=== PATIENT | female | born 1935 | race Caucasian/White ===

== ENCOUNTER 2019-12-05 13:22 | Inpatient (IN) | payer OTHER, MEDICARE ==
[~2019-12-05] VITALS: Ht 160 cm; Wt 61.2 kg
--- NOTE | 2019-12-05 14:08 | EKG ---
[address] [address] Test Date: 2019-12-05 Test Time: 13:55:03 Pat Name: [facility] Department: Room: Gender: F Chicken Catcher: SHAWN : 1935 Requested By: FELI ROWE Order Number: [id number] Reading MD: Measurements Intervals Bryant Rate: 72 P: 3 MO: 166 QRS: -19 QRSD: 72 T: 16 QT: 464 QTc: 510 Interpretive Statements SINUS RHYTHM ATRIAL PREMATURE COMPLEX(ES) LEFTWARD AXIS T ABNORMALITY IN ANTERIOR LEADS PROLONGED QT ABNORMAL ECG RI6.02 No previous ECG available for comparison
--- NOTE | 2019-12-05 14:10 | PHYS DOC ---
General Adult EDM: Chief Complaint: ALTERED MENTAL STATUS HPI: HPI: 84-year-old female past medical history significant for severe dementia, CVA, hypothyroidism, hypertension, GERD, presents to the ed bibems from [facility], concern for failure to thrive, not getting out of bed, not eating normally. EMS reported patient is having urinary retention and had to straight cath yesterday, 1,000 cc urine removed. Patient was recently admitted to [facility] with concern for UTI and RLE cellulitis. After this patient was [facility] (prior to this was at an assisted living facility- broke her hip 08/2019). ROS: Unable to be obtained due to severe dementia/inappropriate responses. Medication list reviewed by patient, is not on any anticoagulants, no antibiotics on med list. Tested negative for COVID on November 26, 2019. Physical Exam: PE: Constitutional: no acute distress, non-toxic appearance. [] HENT: Normocephalic, atraumatic, bilateral external ears normal, oropharynx very dry/cracked tongue, no oral exudates, nose normal. [] Eyes: EOMI, conjunctiva normal, no discharge. [] Neck: Normal range of motion, no tenderness, supple, no stridor. [] Cardiovascular:Heart rate regular rhythm, no murmur [] Lungs & Thorax: Bilateral breath sounds clear to auscultation [] Abdomen: Bowel sounds normal, soft, no tenderness, no masses, no pulsatile masses. [] Skin: Warm, dry, no erythema, no rash-no RLE cellulitis-has resolved. [] Back: No tenderness, no CVA tenderness. [] Extremities: No tenderness, no cyanosis, no clubbing, ROM intact, no edema. [] Neurologic: Alert and oriented X 3, normal motor function, normal sensory function, no focal deficits noted. [] Psychologic: Affect normal, judgement normal, mood normal. [] EKG: EKG: [] Sinus rhythm at 73 bpm, with APCs, QTC 510, T wave inversion V1 through V6, no ST elevations or ST depressions -possible l Radiology/Procedures: Radiology/Procedures: IMAGING REPORT Signed PATIENT: CHUY MYLES ACCOUNT: [id number] : 1935 LOCATION: ER AGE: 84 SEX: F EXAM STATUS: REG ER ORD. PHYSICIAN: FELI ROWE DO REASON: ams PROCEDURE: PORTABLE CHEST 1V EXAM: CHEST 1 VIEW History: Altered mental status COMPARISON: None available. TECHNIQUE: Single portable radiograph of the chest FINDINGS: The cardiac silhouette is unremarkable. Minimal bibasilar lung atelectasis or infiltrates. The costophrenic sulci are clear and well demarcated. IMPRESSION: Minimal bibasilar lung atelectasis or infiltrates. Electronically signed by: Helio Dumont MD (12/05/2019 2:24 PM) [id number] DICTATED AND SIGNED BY: HELIO DUMONT MD DATE: 12/05/19 9601 CC: ADIA ATKINS MD; FELI ROWE DO ~ IMAGING REPORT Signed PATIENT: CHUY MYLES ACCOUNT: [id number] : 1935 LOCATION: ER AGE: 84 SEX: F EXAM STATUS: REG ER ORD. PHYSICIAN: FELI ROWE DO REASON: ams PROCEDURE: CT HEAD WO CONTRAST CT HEAD INDICATION: Altered mental status COMPARISON: None Available. Exposure: One or more of the following individualized dose reduction techniques were utilized for this examination: 1. Automated exposure control 2. Adjustment of the mA and/or kV according to patient size 3. Use of iterative reconstruction technique TECHNIQUE: 5 mm contiguous axial images were obtained from the skull base to the vertex in both bone and soft tissue algorithm. FINDINGS: Mild bilateral periventricular white matter hypodensities likely chronic small vessel ischemic disease. Probable small old infarcts bilateral frontal lobes. No evidence of acute intracranial hemorrhage. No extra-axial fluid collections. No mass effect or midline shift. Ventricular size is appropriate. Basal cisterns are patent. No fractures identified.Orosco-white differentiation is preserved.Globes and orbits are within normal limits. Paranasal sinuses and mastoid air cells are clear. IMPRESSION: No acute intracranial findings. Electronically signed by: Helio Dumont MD (12/05/2019 2:17 PM) [id number] DICTATED AND SIGNED BY: HELIO DUMONT MD DATE: 12/05/19 1416 CC: ADIA ATKINS MD; FELI ROWE DO ~ Course & Med Decision Making: Course & Med Decision Making Pertinent Labs and Imaging studies reviewed. (See chart for details) Concern for failure to thrive in a severely demented 84-year-old, recently on antibiotics for UTI, [facility]itentiary reported [facility] retention. CT imaging of the head unremarkable. Chest x-ray concerning for atelectasis versus early consolidation. Tested negative for COVID 9 days ago. Labs show elevated magnesium, no leukocytosis or lactic acidosis. Patient afebrile in ED, normotensive with no tachycardia. Urinanalysis 0 bacteria, small LE, 5-10wbc, few squamous cells. Will admit for dehydration and failure to thrive. Pts' son at bedside who is the DPOA, agrees with this plan. I have spoken with the patient and/or caregivers. I have explained the patient's condition, diagnosis and treatment plan based on the information available to me at this time. I have answered the patient's and/or caregivers questions and answered any concerns. The patient and/or caregivers have as good an understanding of the patient's diagnosis, condition and treatment plan as can be expected at this point. The patient has been stabilized within the capability of the emergency department. The patient will be transported for further care and management or will be moved to an observation or inpatient service. I have communicated with the staff or medical practitioner taking over this patient's care. Yessica Disclaimer: Yessica Disclaimer: This electronic medical record was generated, in whole or in part, using a voice recognition dictation system. Departure Departure: Impression: Primary Impression: Dehydration Additional Impression: Failure to thrive in adult Disposition: 09 ADMITTED INPATIENT Admitting Physician: Adia Atkins Condition: STABLE Referrals: ADIA ATKINS MD (PCP) Scripts Levothyroxine Sodium (LEVOTHYROXINE SODIUM) 50 Mcg Tablet 1 TAB PO DAILY for hypothyroidism, #30 TAB 5 Refills Prov: ADIA ATKINS MD 12/08/19 Justification of Admission: Justification of Admission: Justification of Admission Dx: Yes Altered Mental Status: Altered Mental Status FELI ORWE DO Dec 05, 2019 14:10
[2019-12-05 14:17] LABS: BASO % 1 % (0-3); EOS % 0 % (0-3); HEMATOCRIT 41.6 % (36.0-47.0); LYMPH # 1.5 x10^3/uL (1.0-4.8); LYMPH % 15 % (24-48); MEAN CORPUSCULAR HEMOGLOBIN 30 pg (25-35); MEAN CORPUSCULAR HGB CONC 31 g/dL (31-37); MEAN CORPUSCULAR VOLUME 95 fL (79-100); MONO # 0.8 x10^3/uL (0.0-1.1); MONO % 8 % (0-9); NEUT # 7.6 x10^3uL (1.8-7.7); NEUT % 76 % (31-73); PLATELET COUNT 300 x10^3/uL (140-400); RED BLOOD COUNT 4.38 x10^6/uL (3.50-5.40); RED CELL DISTRIBUTION WIDTH 15.9 % (11.5-14.5)
--- NOTE | 2019-12-05 14:20 | RAD ---
CT HEAD INDICATION: Altered mental status COMPARISON: None Available. Exposure: One or more of the following individualized dose reduction techniques were utilized for this examination: 1. Automated exposure control 2. Adjustment of the mA and/or kV according to patient size 3. Use of iterative reconstruction technique TECHNIQUE: 5 mm contiguous axial images were obtained from the skull base to the vertex in both bone and soft tissue algorithm. FINDINGS: Mild bilateral periventricular white matter hypodensities likely chronic small vessel ischemic disease. Probable small old infarcts bilateral frontal lobes. No evidence of acute intracranial hemorrhage. No extra-axial fluid collections. No mass effect or midline shift. Ventricular size is appropriate. Basal cisterns are patent. No fractures identified.Orosco-white differentiation is preserved.Globes and orbits are within normal limits. Paranasal sinuses and mastoid air cells are clear. IMPRESSION: No acute intracranial findings. Electronically signed by: Helio Dumont MD (12/05/2019 2:17 PM) [id number]
--- NOTE | 2019-12-05 14:26 | RAD ---
EXAM: CHEST 1 VIEW History: Altered mental status COMPARISON: None available. TECHNIQUE: Single portable radiograph of the chest FINDINGS: The cardiac silhouette is unremarkable. Minimal bibasilar lung atelectasis or infiltrates. The costophrenic sulci are clear and well demarcated. IMPRESSION: Minimal bibasilar lung atelectasis or infiltrates. Electronically signed by: Helio Dumont MD (12/05/2019 2:24 PM) [id number]
[2019-12-05 14:38] LABS: MAGNESIUM 3.2 mg/dL (1.8-2.4)
[2019-12-05 15:36] LABS: BACTERIA,URINE 0 /HPF (0-FEW); BILIRUBIN,URINE NEG (NEG); CLARITY,URINE CLOUDY; COLOR,URINE YELLOW; GLUCOSE,URINE NEG (NEG); NITRITE,URINE NEG (NEG); RBC,URINE 20-40 /HPF (0-2); SQUAMOUS EPITHELIAL CELL,UR FEW /LPF; UROBILINOGEN,URINE 0.2 mg/dL (0.2 mg/dL)
[2019-12-05 15:37] LABS: HYALINE CASTS, URINE FEW /HPF
[2019-12-05] MEDS ORDERED: IV NORMAL SALINE 1,000ML 1,000 ML IV SCH (16:24)
[2019-12-05] MEDS ORDERED: IV NORMAL SALINE 50ML 50 ML ONE (16:26)
[2019-12-05] MEDS ORDERED: cefTRIAXone SODIUM 1 GM VIAL ONE (16:26)
[2019-12-05 18:32] LABS: ALBUMIN 2.6 g/dL (3.4-5.0); ALBUMIN/GLOBULIN RATIO 0.6 (1.0-1.7); CALCIUM 8.5 mg/dL (8.5-10.1); CREATININE 1.2 mg/dL (0.6-1.0); POTASSIUM 3.6 mmol/L (3.5-5.1); TOTAL BILIRUBIN 0.4 mg/dL (0.2-1.0)
[2019-12-05] MEDS ORDERED: FURO-69 PO (19:46)
[2019-12-05] MEDS ORDERED: POTA20TA4 PO (19:46)
[2019-12-05] MEDS ORDERED: ACET325T21 PO (19:46)
[2019-12-05] MEDS ORDERED: LACT1CAP21 PO (19:46)
[2019-12-05] MEDS ORDERED: MEMA10TA PO (19:46)
[2019-12-05] MEDS ORDERED: ASPI-630 PO (19:46)
[2019-12-05] MEDS ORDERED: LEVO25TA4 PO (19:46)
[2019-12-05] MEDS ORDERED: OLAN2.5T3 PO (19:46)
[2019-12-05] MEDS ORDERED: ATOR20TA58 PO (19:46)
[2019-12-05] MEDS ORDERED: LISI-338 PO (19:46)
[2019-12-05] MEDS ORDERED: DOCU-109 PO (19:46)
[2019-12-05 20:30] VITALS: BP 143/84
[2019-12-05] MEDS: IV DEXTROSE 5% 1,000 ML IV SCH (22:30)
[2019-12-05 23:00] VITALS: BP 132/73
[2019-12-05] MEDS ORDERED: ACETAMINOPHEN 650 MG SUPP.RECT. PR PRN (23:45)
[2019-12-06 06:50] VITALS: BP 128/69
[2019-12-06 06:56] LABS: BASO % 1 % (0-3); EOS # 0.2 x10^3/uL (0.0-0.7); EOS % 2 % (0-3); HEMATOCRIT 38.3 % (36.0-47.0); HEMOGLOBIN 12.3 g/dL (12.0-15.5); LYMPH # 1.5 x10^3/uL (1.0-4.8); LYMPH % 19 % (24-48); MEAN CORPUSCULAR HEMOGLOBIN 30 pg (25-35); MEAN CORPUSCULAR HGB CONC 32 g/dL (31-37); MEAN CORPUSCULAR VOLUME 93 fL (79-100); MONO # 0.7 x10^3/uL (0.0-1.1); MONO % 9 % (0-9); NEUT # 5.6 x10^3uL (1.8-7.7); NEUT % 70 % (31-73); PLATELET COUNT 288 x10^3/uL (140-400); RED BLOOD COUNT 4.13 x10^6/uL (3.50-5.40); RED CELL DISTRIBUTION WIDTH 15.2 % (11.5-14.5)
[2019-12-06 07:11] LABS: ALBUMIN 2.3 g/dL (3.4-5.0); ALBUMIN/GLOBULIN RATIO 0.5 (1.0-1.7); CALCIUM 8.1 mg/dL (8.5-10.1); GFR 53.1; POTASSIUM 3.4 mmol/L (3.5-5.1); TOTAL BILIRUBIN 0.4 mg/dL (0.2-1.0); TOTAL PROTEIN 6.6 g/dL (6.4-8.2)
[2019-12-06] MEDS: IV DEXTROSE 5% 1,000 ML IV SCH (11:15)
[2019-12-06 11:35] VITALS: BP 159/75
[2019-12-06] MEDS ORDERED: IOHEXOL 300 MG/ML 75 ML VIAL. IV ONE (12:30)
[2019-12-06] MEDS ORDERED: CONTRAST GIVEN. MC PRN (12:45)
--- NOTE | 2019-12-06 12:47 | HP ---
ADMIT DATE: 12/05/2019 HISTORY OF PRESENT ILLNESS: The patient is an 84-year-old female patient who was transferred from [facility] as the patient has been very lethargic, weak, she is not eating or drinking. She was recently admitted to [facility] for concern for UTI and perhaps cellulitis. On arrival to [place], she was found to be extremely constipated. In fact, she has fecal impaction and also urinary retention that required treatment with indwelling Forbes catheter and because she continued to be very lethargic and unable to eat and drink and failing to thrive, a decision was made after discussion with her DPOA to send her to the Emergency Room of [facility] for further evaluation and treatment. The patient was extensively investigated and was found to be somewhat dehydrated and there was a questionable UTI and therefore, a decision was made to admit her for rehydration and IV antibiotic. PAST MEDICAL HISTORY: Significant for cellulitis of the right lower limb for which she was treated recently at [facility]. She is known to have chronic peripheral venous insufficiency. She has also osteoporosis, osteoarthritis, bipolar disorder, hypernatremia, hypothyroidism, hyperlipidemia, vitamin D deficiency, essential hypertension. She has an unstageable sacral decubitus ulcer, primary generalized osteoarthritis, cognitive communication deficit. Apparently, she has also a personal history of transient ischemic attack and cerebral infarction without any residual deficit. PAST SURGICAL HISTORY: Apparently unremarkable. FAMILY HISTORY: Unobtainable. SOCIAL HISTORY: She apparently was residing at an assisted living facility prior to admission. She apparently has broken her hip in 08/2019. After she broke her hip, apparently, she was in a long-term care facility care home, although I do not have the name of the facility. She does not smoke, drink alcohol or use recreational drugs. REVIEW OF SYSTEMS: Unobtainable. ALLERGIES: She has no known drug allergies. MEDICATIONS: She was on the following medications: She is on atorvastatin calcium 20 mg at bedtime, lisinopril 5 mg once a day, aspirin 81 mg once a day, Tylenol 650 mg every 4 hours, olanzapine for Zyprexa 2.5 mg at bedtime, Namenda 10 mg twice a day, potassium chloride 20 mEq daily. She was on furosemide 20 mg once a day, Colace 100 mg twice a day, lactobacillus rhamnosus 1 capsule twice a day and levothyroxine 25 mcg once a day. REVIEW OF SYSTEMS: Unobtainable. PHYSICAL EXAMINATION: GENERAL: On arrival to the Emergency Room, she looked well and was clearly in no apparent respiratory distress. No pallor, jaundice, cyanosis or thyromegaly. No jugular venous distention. No lower limb edema. VITAL SIGNS: Her heart rate was 77, blood pressure was 105/56, temperature was 98.1, respiratory rate was 18 and oxygen saturation was 95% on room air. HEAD, EYES, EARS, NOSE AND THROAT: Showed normocephalic, atraumatic. NECK: Supple. HEART: Showed normal first and second heart sounds. No gallop or murmur. CHEST: Clear to auscultation. No crepitation or rhonchi. ABDOMEN: Distended, soft, no tenderness. No masses. No pulsatile masses. As per ER physician evaluation, her back showed no tenderness. No renal angle tenderness. EXTREMITIES: No clubbing, cyanosis or edema. NEUROLOGIC: She was apparently awake, alert. She moves all extremities without obvious deficit. While in the Emergency Room, she has had an EKG, which showed that she was in sinus rhythm at 73 beats per minute with multiple atrial premature contractions. Corrected QT interval was 510. There was T-wave inversion V1-V6. No ST segment elevation or depression. Her chest x-ray showed that the cardiac silhouette is unremarkable, minimal bibasilar lung atelectasis or infiltrate. The costophrenic angles are clear and well demarcated. She apparently has had also a CT scan of the head, which showed mild bilateral periventricular white matter hypodensities, likely chronic small vessel ischemic disease, probable small old infarcts in bilateral frontal lobes. No evidence of acute intracranial hemorrhage, no extraaxial fluid collection, no mass effect or midline shift. Ventricular size appropriate. Basal cisterns are patent. No fracture identified. Orosco-white differentiation is preserved. Globes and orbits are within normal limits. Paranasal sinuses and mastoid air cells are clear. LABORATORY DATA: Her lab work showed a white cell count of 10,000, hemoglobin 13, hematocrit 41, MCV 95, and platelet count of 300,000 with normal manual differential. Her chemistry showed a serum sodium of 149, potassium 3.6, chloride 114, bicarbonate 28, anion gap of 7, BUN 45, creatinine 1.2, estimated GFR was 43 mL per minute. Her glucose was 92, calcium was 8.5, magnesium was 3.2. Total bilirubin, AST, ALT, alkaline phosphatase were normal. CK was 274. Troponin was less than 0.017. BNP was 223. Total protein was 7, albumin was 2.6. Her prothrombin time, INR and aPTT were normal. Her urinalysis showed the urine was yellow, cloudy with a pH of 5.5, specific gravity of 1.025, a small amount of protein. The urine was negative for glucose, ketones, large amount of blood, negative for nitrites, small amount of leukocyte esterase, 20-40 rbc's, 5-10 wbc's, and no bacteria. ASSESSMENT AND PLAN: The patient was admitted for diagnosis of failure to thrive, dehydration. She has received a gram of Rocephin and did receive a liter of normal saline. I did start her on D5W given her marked hypernatremia. We will follow her labs closely and also order as she has had an indwelling Forbes catheter and she was retaining urine, and we will get physical and occupational therapy to work with her and decide on further management accordingly. Other medical problems include chronic venous insufficiency, hypothyroidism, hyperlipidemia, vitamin D deficiency, essential hypertension, sacral decubitus ulcer, unstageable, and primary generalized osteoarthritis. She has also cognitive communication deficit. JOHNNY SHER MD DR: AAKASH/gary JOB#: [id number] / [id number]
--- NOTE | 2019-12-06 13:56 | PN ---
DATE: 12/06/2019 SUBJECTIVE: The patient was admitted yesterday with dehydration, hypernatremia as well as possible urinary tract infection. She is extremely demented, although she does open her eyes and mouth some words. She was started on D5W as her sodium was extremely high and she was dehydrated. PHYSICAL EXAMINATION: GENERAL: When I examined her this morning, however, she looked well and was clearly in no apparent respiratory distress. No pallor, jaundice, cyanosis or thyromegaly. No jugular venous distention. No lower limb edema. VITAL SIGNS: Her heart rate was 75, blood pressure was 128/69, temperature 97.5, respiratory rate was 16, and oxygen saturation was 98% on room air. HEENT: Showed normocephalic, atraumatic. NECK: Supple. HEART: Showed normal first and second heart sounds. No gallop or murmur. CHEST: Clear to auscultation. No crepitation or rhonchi. ABDOMEN: Distended with marked tenderness mostly in the left lower quadrant. No guarding or rigidity. No organomegaly. All hernial orifices are intact. Bowel sounds normal. NEUROLOGICALLY: She is demented, but without any obvious lateralizing sign. She does open her eyes and mouth some words. She moves her extremities, although she is mostly bedbound. She has an indwelling Forbes catheter. Her intake over the last 24 hours was incompletely recorded. LABORATORY DATA: Her chemistry this morning showed her serum sodium is 148, potassium 3.4, chloride 113, bicarbonate 27, anion gap of 8, BUN 34, creatinine 1. Estimated GFR was 53 mL per minute. Her glucose was 111, calcium was 8.1. Total bilirubin, AST, ALT, alkaline phosphatase were normal. Total protein 6.6, albumin 2.3. ASSESSMENT AND PLAN: This is an 84-year-old female patient who was admitted for: 1. Failure to thrive. 2. Dehydration and marked hypernatremia. 3. Questionable urinary tract infection and she has also fecal impaction as well as urinary retention that required indwelling Forbes catheter. When I examined her this afternoon, she is markedly tender in the left lower quadrant and arrangement was made for her to have a CT scan of the abdomen and pelvis with IV contrast. She has a multitude of other medical problems including hypertension, hyperlipidemia, and hypothyroidism. Once we have the CT scan results, we will discuss further management. I will change her IV fluid to D5 with 40 mEq of potassium chloride to replenish her potassium also. JOHNNY SHER MD DR: AAKASH/gary JOB#: [id number] / [id number]
[2019-12-06] MEDS: POTASSIUM CL 20MEQ IN D5W 1,000 ML IV SCH ×2 (14:30→23:02)
[2019-12-06 15:00] VITALS: BP 150/89
--- NOTE | 2019-12-06 15:21 | RAD ---
CT scan of the abdomen and pelvis with contrast 12/06/2019 CLINICAL HISTORY: Abdominal distention and tenderness. TECHNIQUE: After the intravenous administration of 75 cc of Omnipaque 300 only, contiguous, 3 mm axial sections were obtained through the abdomen and pelvis. One or more of the following individualized dose reduction techniques were utilized for this study: 1. Automated exposure control. 2. Adjustment of the mA and/or kV according to patient size. 3. Use of iterative reconstruction technique. FINDINGS: Images through the lung bases demonstrate dependent subsegmental atelectasis involving both lower lobes. Mild bullous emphysematous changes seen bilaterally. The liver, spleen, pancreas, adrenal glands and kidneys are within normal limits. Atherosclerotic calcification of the abdominal aorta and its branches is seen. The abdominal aorta tapers normally. The gallbladder is well-distended. No free fluid or free air is seen within the abdomen. Air and stool are seen throughout the colon. There is no evidence of bowel obstruction. Multiple diverticula are seen involving the colon, particularly the sigmoid colon. No inflammatory changes are seen in the adjacent fat. Images through the pelvis demonstrate a Forbes catheter within the urinary bladder which is contracted. The patient is post left JORGE. A large amount of stool is seen involving the rectum and sigmoid colon. This raises the possibility of a fecal impaction. Clinical correlation is recommended. Minimal S-shaped curvature of the thoracolumbar spine is seen. Degenerative changes are seen involving the lower thoracic and throughout the lumbar spine along with the right hip. IMPRESSION: Large amount stool is seen involving the rectum and sigmoid colon suggestive of fecal impaction. Clinical correlation is recommended. There is no evidence of bowel obstruction. Electronically signed by: Tu Noble MD (12/06/2019 3:18 PM) [id number]
[2019-12-06 23:00] VITALS: BP 159/81
[2019-12-07 05:44] VITALS: BP 162/81
[2019-12-07 08:24] LABS: HEMATOCRIT 38.3 % (36.0-47.0); HEMOGLOBIN 12.3 g/dL (12.0-15.5); RED BLOOD COUNT 4.16 x10^6/uL (3.50-5.40); RED CELL DISTRIBUTION WIDTH 14.7 % (11.5-14.5); WHITE BLOOD COUNT 6.5 x10^3/uL (4.0-11.0)
[2019-12-07 08:44] LABS: ALBUMIN 2.2 g/dL (3.4-5.0); ALBUMIN/GLOBULIN RATIO 0.5 (1.0-1.7); CALCIUM 8.1 mg/dL (8.5-10.1); CREATININE 0.9 mg/dL (0.6-1.0); GFR 59.9; POTASSIUM 3.9 mmol/L (3.5-5.1); TOTAL BILIRUBIN 0.6 mg/dL (0.2-1.0); TOTAL PROTEIN 6.3 g/dL (6.4-8.2)
[2019-12-07] MEDS ORDERED: SODIUM PHOSPHATES 19/7GM 133 ML ENEMA. PR ONE (10:15)
[2019-12-07] MEDS ORDERED: MAGNESIUM CITRATE 296 ML SOLUTION. PO ONE (10:15)
[2019-12-07] MEDS: DOCUSATE 100 MG/10 ML SOLUTION. PO SCH ×2 (10:32→20:48)
[2019-12-07] MEDS: POTASSIUM CL 20MEQ IN D5W 1,000 ML IV SCH ×2 (10:32→20:48)
[2019-12-07 10:42] VITALS: BP 166/88
--- NOTE | 2019-12-07 11:23 | PN ---
DATE: 12/05/2019 SUBJECTIVE: The patient is resting flat in bed, in no apparent distress. She is extremely confused. She has not eaten any her breakfast this morning. However, the nursing staff did not voice any concern and stated that she had generally uneventful night. Her CT scan of the abdomen and pelvis with contrast done yesterday showed that she has large amount of stool is seen involving the rectum and sigmoid colon suggestive of fecal impaction. PHYSICAL EXAMINATION: GENERAL: When I examined her this morning, she looked well and was clearly in no apparent respiratory distress. No pallor, jaundice, cyanosis or thyromegaly. No jugular venous distention. No limb edema. VITAL SIGNS: Her heart rate was 71, blood pressure was 162/81, temperature 98.7, respiratory rate 20, and oxygen saturation was 96%. HEAD, EYES, EARS, NOSE AND THROAT: Normocephalic, atraumatic. NECK: Supple. HEART: Showed normal first and second heart sounds. No gallop or murmur. CHEST: Clear to auscultation. No crepitation or rhonchi. ABDOMEN: Distended, soft. Tenderness mostly in the left lower quadrant. NEUROLOGIC: She is profoundly demented, but without any obvious lateralizing sign. I actually did a rectal exam, which showed that the rectal vault is full of soft stool. We did some disimpaction. We did start her on laxatives and stimulant as well as an enema. Her intake over the last 24 hours was 250, output was 850. LABORATORY DATA: As of this morning, her white cell count was 6500, hemoglobin 12, hematocrit 38, MCV 92, and platelet count of 284,000. Her chemistry showed a serum sodium 139, potassium 3.9, chloride 106, bicarbonate 25, anion gap of 8, BUN 16, creatinine 0.9, estimated GFR was 60 mL per minute. Her glucose 122, calcium was 8.1. Total bilirubin, AST, ALT, alkaline phosphatase were normal. Total protein was 6.3, albumin 2.2. ASSESSMENT: 1. Altered mental status. The patient apparently is profoundly demented. 2. Failure to thrive. 3. Dehydration and marked hypernatremia, resolved. Her serum sodium is down to 139. 4. Questionable urinary tract infection for which she is started on IV antibiotic. 5. Fecal impaction confirmed both by CT scan and rectal exam. We did digital disimpaction. I started her on Colace, MiraLax, mag citrate and Fleet enema. I also ordered her thyroid stimulating hormone to make sure that hypothyroidism is the cause of her severe constipation. Meanwhile, we will continue obviously with physical and occupational therapy. JOHNNY SHER MD DR: AAKASH/gary JOB#: [id number] / [id number]
[2019-12-07 15:18] VITALS: BP 144/82
[2019-12-07 18:56] VITALS: BP 138/88
[2019-12-07 23:07] VITALS: BP 134/74
[2019-12-08 05:26] VITALS: BP 130/89
[2019-12-08 06:40] LABS: CALCIUM 8.1 mg/dL (8.5-10.1); CREATININE 0.9 mg/dL (0.6-1.0); GFR 59.9; POTASSIUM 3.8 mmol/L (3.5-5.1)
[2019-12-08] MEDS: DOCUSATE 100 MG/10 ML SOLUTION. PO SCH (07:59)
[2019-12-08] MEDS: POTASSIUM CL 20MEQ IN D5W 1,000 ML IV SCH ×2 (07:59→14:30)
[2019-12-08] MEDS ORDERED: POLYETHYLENE GLYCOL 3350 17 GM PACKET. PO SCH (09:00)
[2019-12-08 10:47] VITALS: BP 121/74
[2019-12-08] MEDS ORDERED: LEVO50TA5 PO (12:39)
--- NOTE | 2019-12-08 13:29 | DS ---
DATE OF DISCHARGE: 12/08/2019 HOSPITAL COURSE: The patient is an 84-year-old female patient who was admitted with failure to thrive, urinary retention, dehydration and severe constipation. She was started on D5W and her serum sodium has normalized as well as her potassium. Her TSH was slightly elevated at 4.914 for which I increased her Synthroid to 50. Her white cell count has been within normal range. Her urine and blood cultures both negative. She did actually work with physical therapy and was able to walk with 2-person assist and therefore, the plan is to discharge her back to [place] to continue the process of rehabilitation. PHYSICAL EXAMINATION: GENERAL: When I examined her this afternoon, she was resting slightly propped up in bed, in no apparent respiratory distress. She is awake, alert, very confused. VITAL SIGNS: Her heart rate was 95, blood pressure was 121/74, temperature 98.5, respiratory rate was 20, and oxygen saturation was 94%. HEAD, EYES, EARS, NOSE AND THROAT: Normocephalic, atraumatic. NECK: Supple. HEART: Showed normal first and second heart sounds. No gallop or murmur. CHEST: Clear to auscultation. No crepitation or rhonchi. ABDOMEN: Distended, soft, nontender. No guarding or rigidity. No organomegaly. All hernial orifices intact. Bowel sounds normal. NEUROLOGIC: She was demented, but without any obvious lateralizing sign. All cranial nerves intact. She moves extremities without difficulty. Her intake over the last 24 hours was 1550, output was 750. LABORATORY DATA: As of this morning, her white cell count was 6500, hemoglobin 12, hematocrit 36, MCV 92, and platelet count of 284,000. Her chemistry showed a serum sodium 136, potassium 3.8, chloride 103, bicarbonate 26, anion gap of 7, BUN 10, creatinine 0.9, estimated GFR was 59 mL per minute. Her glucose 120, calcium was 8.1. Her TSH was slightly elevated at 4.914. Her prothrombin time, INR and aPTT normal. Urinalysis is unremarkable. Her urine culture was negative. DISCHARGE MEDICATIONS: The patient was discharged back to [place] to continue on levothyroxine 50 mcg once a day, Tylenol 650 mg every 4 hours, aspirin 81 mg once a day, atorvastatin 20 mg at bedtime, Colace 100 mg twice a day, lactobacillus rhamnosus 1 capsule twice a day, lisinopril 5 mg once a day, Namenda 10 mg once a day, olanzapine for Zyprexa 2.5 mg at bedtime. FINAL DISCHARGE DIAGNOSES: 1. Failure to thrive. The patient's oral intake has improved. She is eating about 50% of her meals. 2. Dehydration, marked hypernatremia resolved. Her sodium has normalized down to 136. 3. Fecal impaction, for which we did digital disimpaction. We treated her on Colace, MiraLax and mag citrate and Fleet enema. 4. Hypothyroidism. 5. Hypertension. 6. Hyperlipidemia. 7. Dementia. JOHNNY SHER MD DR: AAKASH/gary JOB#: [id number] / [id number]
== END 2019-12-08 15:09 | DRG 640 ==
LOC: ER 13:22 → 1 SOUTH 18:45
PROVIDERS: ADMIT Internal Medicine; ATTEND Internal Medicine
DX: E86.0 Dehydration (principal); E43 Unspecified severe protein-calorie malnutrition; E87.0 Hyperosmolality and hypernatremia; K56.41 Fecal impaction; E03.9 Hypothyroidism, unspecified; R33.9 Retention of urine, unspecified; E55.9 Vitamin D deficiency, unspecified; E78.5 Hyperlipidemia, unspecified; F03.90 Unspecified dementia, unspecified severity, without behavioral disturbance, psychotic disturbance, mood disturbance, and anxiety; F31.9 Bipolar disorder, unspecified; I10 Essential (primary) hypertension; I87.2 Venous insufficiency (chronic) (peripheral); L89.150 Pressure ulcer of sacral region, unstageable; M15.0 Primary generalized (osteo)arthritis; M81.0 Age-related osteoporosis without current pathological fracture; R41.841 Cognitive communication deficit; R62.7 Adult failure to thrive; Z86.73 Personal history of transient ischemic attack (TIA), and cerebral infarction without residual deficits; K21.9 Gastro-esophageal reflux disease without esophagitis; Z20.828 Contact with and (suspected) exposure to other viral communicable diseases; Z68.23 Body mass index [BMI] 23.0-23.9, adult
CPT/HCPCS: 36415; 70450; 71045; 74177; 80048; 80053; 81001; 82550; 82947; 83735; 83880; 84443; 84484; 85025; 85027; 85610; 85730; 87040; 87086; 93005; 96366; 96375; J0696; J7042; Q9967; 99285-25; J7030; U0003-CS

== ENCOUNTER 2021-06-10 16:34 | Emergency (ER) | payer OTHER, MEDICARE ==
[~2021-06-10] VITALS: Ht 160 cm; Wt 52.0 kg
[~2021-06-10 16:34] MED LIST: ACET325T21 PO; ASPI-630 PO; ATOR20TA58 PO; DOCU-109 PO; FURO-69 PO; LACT1CAP21 PO; LEVO25TA4 PO; LEVO50TA5 PO; LISI5TAB15 PO; MEMA10TA PO; OLAN2.5T3 PO; POTA-121 PO
[2021-06-10] MEDS ORDERED: IV NORMAL SALINE 1,000ML 1,000 ML IV ONE (16:45)
--- NOTE | 2021-06-10 16:45 | PHYS DOC ---
Past History Past Medical History: Arthritis, Bipolar, Dementia, High Cholesterol, Hypertension, Hypothyroid, Stroke, TIA (JERRY MERINO DO) Past Medical History: Dementia (CATHY CHEN MD) Past Surgical History: Other Additional Past Surgical Histo: UNKNOWN (JERRY MERINO DO) Alcohol Use: None (JERRY MERINO DO) Adult General Chief Complaint Chief Complaint: ALTERED MENTAL STATUS HPI HPI Patient is an 85-year-old female presenting via EMS for nausea and vomit. This is a subacute issue starting approximately 5 days ago without obvious ingestion, sick contact trauma or other exposure. Nothing known makes better, p.o. intake makes worse. Unknown if patient has any pain due to several comorbid conditions in fact that patient has dementia and is subsequently a poor historian. Patient's provider at local [facility] was concerned and evaluated patient today having blood work and radiograph of abdomen performed showing mild ileus and so, patient was transferred to our facility for evaluation. On arrival to facility, patient hemodynamically stable. On arrival, patient not oriented and unable to provide consistent history and so, majority provided by EMS, and healthcare provider at sending facility. Per paperwork, patient is DNR status (JERRY MERINO DO) Review of Systems Review of Systems Unable to fully assess due to patient's poor tracking and inability to follow conversation which is apparently her baseline (JERRY MERINO DO) Allergies Allergies Allergies Coded Allergies Type Severity Reaction Last Updated Verified No Known Drug Allergies 12/05/19 No (JERRY MERINO DO) Physical Exam Physical Exam Constitutional: Well developed, well nourished, no acute distress, non-toxic appearance. HENT: Normocephalic, atraumatic, bilateral external ears normal, oropharynx moist, no oral exudates, nose normal. Eyes: PERRLA, EOMI, conjunctiva normal, no discharge. Neck: Normal range of motion, no tenderness, supple, no stridor. Cardiovascular: Heart rate regular, sinus rhythm, no murmurs rubs or gallops Lungs & Thorax: Bilateral breath sounds clear to auscultation Abdomen: Bowel sounds normal, soft, no tenderness, no masses, no pulsatile masses. Nonsurgical abdomen, no peritoneal signs Skin: Warm, dry, no erythema, no rash. Back: No tenderness, no CVA tenderness. Extremities: No tenderness, no cyanosis, no clubbing, ROM intact, no edema. Neurologic: Alert and oriented X 3, grossly normal motor & sensory function, no focal deficits noted. Psychologic: Affect normal, judgement normal, mood normal. (JERRY MERINO DO) Current Patient Data Vital Signs Vital Signs Date Time Temp Pulse Resp B/P (MAP) Pulse Ox O2 Delivery O2 Flow Rate FiO2 06/10/21 16:35 98.2 71 18 120/90 (100) 92 Room Air Vital Signs Date Time Temp Pulse Resp B/P (MAP) Pulse Ox O2 Delivery O2 Flow Rate FiO2 06/10/21 16:35 98.2 71 18 120/90 (100) 92 Room Air (JERRY MEIRNO DO) EKG EKG EKG ordered and interpreted by myself at 1730 hrs. is sinus rhythm at 80 bpm, unremarkable intervals, left axis deviation, no STEMI (JERRY MERINO DO) EKG Review of above x-ray may have components consistent with A. fib because it C irregularly irregular and P wave is not always completely discernible. (CATHY CHEN MD) Radiology/Procedures Radiology/Procedures [] (JERRY MERINO DO) Radiology/[place] [address] IMAGING REPORT Signed PATIENT: CHUY MYLES ACCOUNT: [id number] : 1935 LOCATION: [address] [place] [address] AGE: 84 SEX: F EXAM STATUS: ADM IN ORD. PHYSICIAN: JOHNNY ATKINS MD REASON: abdominal distension and marked tenderness PROCEDURE: CT ABD PELV W/ IV CONTRST ONLY CT scan of the abdomen and pelvis with contrast 12/06/2019 CLINICAL HISTORY: Abdominal distention and tenderness. TECHNIQUE: After the intravenous administration of 75 cc of Omnipaque 300 only, contiguous, 3 mm axial sections were obtained through the abdomen and pelvis. One or more of the following individualized dose reduction techniques were utilized for this study: 1. Automated exposure control. 2. Adjustment of the mA and/or kV according to patient size. 3. Use of iterative reconstruction technique. FINDINGS: Images through the lung bases demonstrate dependent subsegmental atelectasis involving both lower lobes. Mild bullous emphysematous changes seen bilaterally. The liver, spleen, pancreas, adrenal glands and kidneys are within normal limits. Atherosclerotic calcification of the abdominal aorta and its branches is seen. The abdominal aorta tapers normally. The gallbladder is well-distended. No free fluid or free air is seen within the abdomen. Air and stool are seen throughout the colon. There is no evidence of bowel obstruction. Multiple diverticula are seen involving the colon, particularly the sigmoid colon. No inflammatory changes are seen in the adjacent fat. Images through the pelvis demonstrate a Forbes catheter within the urinary bladder which is contracted. The patient is post left JORGE. A large amount of stool is seen involving the rectum and sigmoid colon. This raises the possibility of a fecal impaction. Clinical correlation is recommended. Minimal S-shaped curvature of the thoracolumbar spine is seen. Degenerative changes are seen involving the lower thoracic and throughout the lumbar spine along with the right hip. IMPRESSION: Large amount stool is seen involving the rectum and sigmoid colon suggestive of fecal impaction. Clinical correlation is recommended. There is no evidence of bowel obstruction. Electronically signed by: Tu Noble MD (12/06/2019 3:18 PM) [id number] DICTATED AND SIGNED BY: TU NOBLE MD DATE: 12/06/19 1518 CC: JOHNNY ATKINS MD ~ [place] [address] IMAGING REPORT Signed PATIENT: CHUY MYLES ACCOUNT: [id number] : 1935 LOCATION: ER AGE: 85 SEX: F EXAM STATUS: REG ER ORD. PHYSICIAN: JERRY MERINO DO REASON: nausea and vomit, dec bowel sounds PROCEDURE: CT ABDOMEN PELVIS WO CONTRAST INDICATION: Reason: nausea and vomit, dec bowel sounds / Spl. Instructions: / History: COMPARISON: November 2019 TECHNIQUE: Axial CT images were obtained through the abdomen and pelvis without intravenous contrast. One or more of the following individualized dose reduction techniques were utilized for this examination: 1. Automated exposure control; 2. Adjustment of the mA and/or kV according to patient size; 3. Use of iterative reconstruction technique. FINDINGS: Opacities are seen at the partially visualized lung bases as well as cystic changes. Small pericardial fluid. Coronary artery calcific atherosclerosis partially seen. Vascular: Severe atherosclerotic disease. Hepatobiliary: Gallstones are visualized. Pancreas: No peripancreatic edema. Spleen: Spleen unremarkable. Renal/Bladder: Lobulated appearance of the kidneys. Fat-containing lesion of the right kidney measuring up to 16 mm. Could be from causes such as angiomyolipoma. Suspected cystic lesion lower pole of the left kidney. There is a suspected 1 mm nonobstructive left renal stone. Gastrointestinal: Calcifications at the uterus which could be from fibroids. Rectosigmoid region is distended with stool. Redundant tortuous appearance of the sigmoid colon. Colonic diverticulosis. No periappendiceal inflammatory changes. There is dilated loops of small bowel identified most prominent in the upper abdomen with more distal decompression Scoliotic curvature of the spine with degenerative changes. Left hip arthroplasty changes. Degenerative changes right hip. Osseous demineralization. Mild retrolisthesis of L4 on 5. T12 probable vertebral body hemangioma. IMPRESSION: * Dilated small bowel loops with distal decompression which can be seen with bowel obstruction. Suspected transition point at pelvis. * Patchy opacities at the lung bases which could be from atelectasis, infiltrate or aspiration. Follow-up could be obtained to ensure that this appropriately resolves to exclude any persistent mass. * Severe atherosclerotic disease. * Calcifications at uterus could be from fibroids. * Distention of the rectosigmoid region with stool. * Lobulated appearance of the kidneys with fat containing lesion of the right kidney again seen as well as suspected cystic lesion left kidney. Limited evaluation for solid mass secondary to lack of contrast and lobulation. Electronically signed by: Rajwinder Larson MD (06/10/2021 6:45 PM) [id number] DICTATED AND SIGNED BY: RAJWINDER LARSON MD DATE: 06/10/211827 CC: JERRY MERINO DO; CATHY CHEN MD; [facility] NEGRETE ~MTH0 0 (CATHY CHEN MD) Heart Score C/O Chest Pain: No Risk Factors: Risk Factors: DM, Current or recent (<one month) smoker, HTN, HLP, family his tory of CAD, obesity. Risk Scores: Risk Factors: DM, Current or recent (<one month) smoker, HTN, HLP, family history of CAD, obesity. (JERRY MERINO DO) HEART Score for Chest Pain: HEART Score for Chest Pain Response (Comments) Value History Moderately Suspicious 1 Age > 65 2 Risk Factors 1 or 2 Risk Factors 1 Troponin >1-<3x Normal Limit 1 Total 5 Risk Factors: Trop = 93 (CATHY CHEN MD) Course & Med Decision Making Course & Med Decision Making ABCs unremarkable HPI limited from patient, physical exam and ER work-up started. At this time in care, my shift was ending. Signout given to Dr. Chen. Please defer to his documentation regarding future care of patient in ER setting (JERRY MERINO DO) Course & Med Decision Making See Dr. Merino chart for details prior shift change. Discussed presentation, testing and tx. plan with Dr. Atkins. Will accept at [facility] for observation and surgical consult on Small bowel ileus Impression: 1. Mental Status Change- Fatigue 2. Hx Dementia 3. Dehydration Hypernatremia 146 4. Renal Insuf. BUN 33/1.1 5. Leukocytosis 15.4 6. Lactic Acid Nl at 1.7 7. Constipation 8. Small Bowel Obstruction/ Ileus (CATHY CHEN MD) Dragon Disclaimer Dragon Disclaimer This electronic medical record was generated, in whole or in part, using a voice recognition dictation system. (JERRY MERINO DO) Departure Departure: Referrals: [facility] NEGRETE (PCP) Dragon Disclaimer This chart was dictated in whole or in part using Voice Recognition software in a busy, high-work load, and often noisy Emergency Department environment. It may contain unintended and wholly unrecognized errors or omissions. (CATHY CHEN MD) Dragon Disclaimer This chart was dictated in whole or in part using Voice Recognition software in a busy, high-work load, and often noisy Emergency Department environment. It may contain unintended and wholly unrecognized errors or omissions. (JERRY MERINO DO) JERRY MERINO DO Jun 10, 2021 16:45 CATHY CHEN MD Jun 10, 2021 18:03
[2021-06-10 17:33] LABS: BASO % 0 % (0-3); EOS % 0 % (0-3); HEMATOCRIT 45.7 % (36.0-47.0); HEMOGLOBIN 14.6 g/dL (12.0-15.5); LYMPH # 0.9 x10^3/uL (1.0-4.8); LYMPH % 6 % (24-48); MEAN CORPUSCULAR HEMOGLOBIN 31 pg (25-35); MEAN CORPUSCULAR HGB CONC 32 g/dL (31-37); MEAN CORPUSCULAR VOLUME 98 fL (79-100); MONO # 0.6 x10^3/uL (0.0-1.1); MONO % 4 % (0-9); NEUT # 13.8 x10^3uL (1.8-7.7); NEUT % 90 % (31-73); PLATELET COUNT 369 x10^3/uL (140-400); RED BLOOD COUNT 4.66 x10^6/uL (3.50-5.40); RED CELL DISTRIBUTION WIDTH 15.5 % (11.5-14.5); WHITE BLOOD COUNT 15.4 x10^3/uL (4.0-11.0)
--- NOTE | 2021-06-10 17:35 | EKG ---
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
[2021-06-10 17:47] LABS: CALCIUM 9.3 mg/dL (8.5-10.1); CREATININE 1.1 mg/dL (0.6-1.0); GFR 47.4; POTASSIUM 3.6 mmol/L (3.5-5.1)
[2021-06-10 17:50] LABS: ALBUMIN 3.4 g/dL (3.4-5.0); ALBUMIN/GLOBULIN RATIO 0.8 (1.0-1.7); TOTAL BILIRUBIN 0.8 mg/dL (0.2-1.0); TOTAL PROTEIN 7.5 g/dL (6.4-8.2)
[2021-06-10 18:25] LABS: % LYMPHS 4 % (24-48); % MONOS 2 % (0-10); % SEGS 94 % (35-66); PLT ESTIMATE ADEQUATE (ADEQUATE)
[2021-06-10] MEDS ORDERED: ASPIRIN 325 MG TABLET PO ONE (18:30)
[2021-06-10] MEDS ORDERED: IV RINGERS SOLUTION,LACTATED 1,000 ML IV ONE (18:30)
--- NOTE | 2021-06-10 18:48 | RAD ---
INDICATION: Reason: nausea and vomit, dec bowel sounds / Spl. Instructions: / History: COMPARISON: November 2019 TECHNIQUE: Axial CT images were obtained through the abdomen and pelvis without intravenous contrast. One or more of the following individualized dose reduction techniques were utilized for this examinat ion: 1. Automated exposure control; 2. Adjustment of the mA and/or kV according to patient size; 3 . Use of iterative reconstruction technique. FINDINGS: Opacities are seen at the partially visualized lung bases as well as cystic changes. Small pericardia l fluid. Coronary artery calcific atherosclerosis partially seen. Vascular: Severe atherosclerotic disease. Hepatobiliary: Gallstones are visualized. Pancreas: No peripancreatic edema. Spleen: Spleen unremarkable. Renal/Bladder: Lobulated appearance of the kidneys. Fat-containing lesion of the right kidney measuri ng up to 16 mm. Could be from causes such as angiomyolipoma. Suspected cystic lesion lower pole of th e left kidney. There is a suspected 1 mm nonobstructive left renal stone. Gastrointestinal: Calcifications at the uterus which could be from fibroids. Rectosigmoid region is d istended with stool. Redundant tortuous appearance of the sigmoid colon. Colonic diverticulosis. No p eriappendiceal inflammatory changes. There is dilated loops of small bowel identified most prominent in the upper abdomen with more distal decompression Scoliotic curvature of the spine with degenerative changes. Left hip arthroplasty changes. Degenerati ve changes right hip. Osseous demineralization. Mild retrolisthesis of L4 on 5. T12 probable vertebral body hemangioma. IMPRESSION: * Dilated small bowel loops with distal decompression which can be seen with bowel obstruction. Valentina pected transition point at pelvis. * Patchy opacities at the lung bases which could be from atelectasis, infiltrate or aspiration. Foll ow-up could be obtained to ensure that this appropriately resolves to exclude any persistent mass. * Severe atherosclerotic disease. * Calcifications at uterus could be from fibroids. * Distention of the rectosigmoid region with stool. * Lobulated appearance of the kidneys with fat containing lesion of the right kidney again seen as w ell as suspected cystic lesion left kidney. Limited evaluation for solid mass secondary to lack of co ntrast and lobulation. Electronically signed by: Jaleel Larson MD (06/10/2021 6:45 PM) [id number]
[2021-06-10] MEDS ORDERED: cefTRIAXone SODIUM 1 GM VIAL ONE (19:25)
[2021-06-10] MEDS ORDERED: IV NORMAL SALINE 50ML 50 ML ONE (19:25)
[2021-06-10 20:15] LABS: CLARITY,URINE CLEAR; COLOR,URINE YELLOW; GLUCOSE,URINE NEG (NEG)
[2021-06-10 20:16] LABS: BACTERIA,URINE 0 /HPF (0-FEW); GRANULAR CASTS,URINE MANY /HPF; NITRITE,URINE NEG (NEG); SQUAMOUS EPITHELIAL CELL,UR FEW /LPF; UROBILINOGEN,URINE 0.2 mg/dL (0.2 mg/dL); WBC,URINE OCC /HPF (0-4)
[2021-06-10 23:28] VITALS: BP 140/56
== END 2021-06-10 22:58 | disposition short-term general hospital (02) ==
LOC: ER 16:34
DX: E86.0 Dehydration (principal); E87.0 Hyperosmolality and hypernatremia; R53.83 Other fatigue; D72.829 Elevated white blood cell count, unspecified; N28.9 Disorder of kidney and ureter, unspecified; K59.00 Constipation, unspecified; F03.90 Unspecified dementia, unspecified severity, without behavioral disturbance, psychotic disturbance, mood disturbance, and anxiety; M19.90 Unspecified osteoarthritis, unspecified site; F31.9 Bipolar disorder, unspecified; E78.00 Pure hypercholesterolemia, unspecified; I10 Essential (primary) hypertension; E03.9 Hypothyroidism, unspecified; Z20.822 Contact with and (suspected) exposure to COVID-19; Z86.73 Personal history of transient ischemic attack (TIA), and cerebral infarction without residual deficits
CPT/HCPCS: 74176; 80053; 81001; 83605; 84484; 85007; 85025; 87040; 87426; 93005; 96361; 96365; 99285; J0696; J7030; J7120; P9612; U0003